=== PATIENT | female | born 1930 | race Caucasian/White ===

== ENCOUNTER → 2019-03-08 | Outpatient (CLI) | payer OTHER ==
[~2019-03-08] MED LIST: ADULT LOW DOSE81 MG PO; CALCIUM 500 +1 EAC5 PO; CHLORELLA CAPS1 EACH PO; ELMIRON PO; HAIR, SKIN & N1 EAC1 PO; JOINT ADVANTAGE PO; LOPRESSOR25 PO; Plavix 75 Mg Tab PO; Tylenol 325MG Caplet PO; VITAMIN D-32000 UNIT PO; ZOCOR 20 MG TAB20 M1 PO
== END ==
LOC: HYPER 03-04 08:10
DX: L97.822 Non-pressure chronic ulcer of other part of left lower leg with fat layer exposed (principal); L30.9 Dermatitis, unspecified; I87.2 Venous insufficiency (chronic) (peripheral); I10 Essential (primary) hypertension; L27.0 Generalized skin eruption due to drugs and medicaments taken internally; D72.829 Elevated white blood cell count, unspecified; I26.99 Other pulmonary embolism without acute cor pulmonale; M81.0 Age-related osteoporosis without current pathological fracture; M51.9 Unspecified thoracic, thoracolumbar and lumbosacral intervertebral disc disorder; M84.350D Stress fracture, pelvis, subsequent encounter for fracture with routine healing; N30.10 Interstitial cystitis (chronic) without hematuria; I25.10 Atherosclerotic heart disease of native coronary artery without angina pectoris; E78.5 Hyperlipidemia, unspecified; M19.90 Unspecified osteoarthritis, unspecified site; I63.40 Cerebral infarction due to embolism of unspecified cerebral artery; D64.9 Anemia, unspecified; D69.6 Thrombocytopenia, unspecified; F41.1 Generalized anxiety disorder; Z79.01 Long term (current) use of anticoagulants; Z86.73 Personal history of transient ischemic attack (TIA), and cerebral infarction without residual deficits; Z86.711 Personal history of pulmonary embolism

== ENCOUNTER → 2019-03-21 | Outpatient (CLI) | payer OTHER | LOC: HYPER 06:39 | DX: L97.812 Non-pressure chronic ulcer of other part of right lower leg with fat layer exposed (principal); I87.2 Venous insufficiency (chronic) (peripheral); L27.0 Generalized skin eruption due to drugs and medicaments taken internally; L30.9 Dermatitis, unspecified; D72.829 Elevated white blood cell count, unspecified; D64.9 Anemia, unspecified; D69.6 Thrombocytopenia, unspecified; E78.5 Hyperlipidemia, unspecified; I10 Essential (primary) hypertension; I26.99 Other pulmonary embolism without acute cor pulmonale; I63.40 Cerebral infarction due to embolism of unspecified cerebral artery; I73.9 Peripheral vascular disease, unspecified; I25.10 Atherosclerotic heart disease of native coronary artery without angina pectoris; I25.2 Old myocardial infarction; N30.10 Interstitial cystitis (chronic) without hematuria; M19.90 Unspecified osteoarthritis, unspecified site; M81.0 Age-related osteoporosis without current pathological fracture; M51.9 Unspecified thoracic, thoracolumbar and lumbosacral intervertebral disc disorder; F41.1 Generalized anxiety disorder; Z86.711 Personal history of pulmonary embolism; Z79.01 Long term (current) use of anticoagulants ==